=== PATIENT | male | born 1990 | race Caucasian/White ===

== ENCOUNTER 2017-09-19 15:19 | Emergency (ER) | payer OTHER ==
[~2017-09-19] VITALS: Ht 182.9 cm; Wt 109.8 kg
[~2017-09-19 15:19] MED LIST: CLONIDINE0.1 MG PO; PROAIR HFA8.5 GM INH; PROTONIX40 M3 PO; SUBOXONE 8 MG-21 FIL SL; ZITHROMAX Z-PA250 M1 PO; ZITHROMAX250 M2 PO
[2017-09-19 16:02] LABS: ABSOLUTE BASOPHIL COUNT 0 /CUMM (0.0-0.2); ABSOLUTE EOSINOPHIL COUNT 0.2 /CUMM (0.0-0.7); ABSOLUTE GRANULOCYTE CT 4.3 /CUMM (1.4-6.5); ABSOLUTE MONOCYTE COUNT 0.5 /CUMM (0.10-0.60); BASOPHIL % 0.4 % (0.0-2.0); EOSINOPHIL % 2.8 % (0-5); GRANULOCYTE % 61.3 % (42.2-75.2); HEMATOCRIT 42.7 % (42-52); MEAN CORPUSCULAR HGB 31.5 PG (27.0-31.0); MEAN CORPUSCULAR HGB CONC 34.6 G/DL (33.0-37.0); MEAN CORPUSCULAR VOLUME 90.9 FL (80.0-94.0); PLATELET COUNT 236 /CUMM (130-400); RBC DISTRIBUTION WIDTH 14.1 % (11.5-14.5)
--- NOTE | 2017-09-19 16:47 | ED GENERAL ADULT ---
History of Present Illness General Chief Complaint: Chest Pain Stated Complaint: PT IS BP IS HIGH BLOOD PRESSURE AND CHEST PAIN Source: patient Exam Limitations: no limitations Vital Signs & Intake/Output Vital Signs & Intake/Output Vital Signs Date Time Temp Pulse Resp B/P B/P Pulse O2 O2 Flow FiO2 Mean Ox Delivery Rate 09/19 1906 98.0 77 20 142/88 98 09/19 1905 98.0 77 20 142/88 09/19 1753 97.9 96 20 152/91 97 Room Air 09/19 1710 98 Room Air 09/19 1529 97.0 112 20 180/109 97 Room Air Allergies Coded Allergies: No Known Allergies (06/01/17) Reconcile Medications Albuterol Sulfate (Proair Hfa) 90 MCG HFA.AER.AD 2 PUF INH Q4-6 PRN PRN wheezing Azithromycin (Zithromax) 250 MG TABLET 1 DP PO AD uri 2 the first day followed by 1 for days 2-5 BUPRENORPHINE HCL/NALOXONE HCL (Suboxone 8 MG-2 MG Sl Film) 8 MG-2 MG FILM 2 FILM SL QDAY PRN OPIOID WITHDRAWAL SIXTEEN... [id number] BUPRENORPHINE HCL/NALOXONE HCL (Suboxone 8 MG-2 MG Sl Film) 1 ANDERS ANDERS 2 FILM SL QDAY PRN OPIOID WITHDRAWAL SX TEN TABS...[id number]...FOLLO W UP WITH OUTPT DETOX CLONIDINE HCL (Clonidine) 0.1 MG TABLET 1 TAB PO QPM . Gabapentin 300 MG CAPSULE 1 CAP PO TID PRN withdrawal Indomethacin 25 MG CAPSULE 1 CAP PO TID PRN pain with food Pantoprazole Sodium (Protonix) 40 MG TABLET. 1 TAB PO BID gastritis Triage Note: 26 YEAR OLD MALE TO ER WITH COMPLAINTS OF L SIDE CP, CONSTANT AND NON RADIATING FOR THE PAST 3 DAYS, PT STATES THAT HE HAS BEEN A DAILY DRINKER FOR THE PAST 8 MONTHS AND THAT 3 DAYS AGO HE DECIDED TO STOP DRINKING, STATES THAT HIS BP HAS BEEN ELEVATED , AND HE WAS VERY NERVOUS THAT HE WAS WITHDRAWING FROM ETOH AND STARTED TO DRINK AGAIN LAST PM, STATES THAT HIS LAST DRINK WAS VODKA AT 0100. PT NOTED TO BE VERY ANXIOUS AT THIS TIME. STATES THAT PAIN DOES NOT INCREASE WITH MOVEMENT OR DEEP INSPIRATION Triage Nurses Notes Reviewed? yes Onset: Gradual Duration: day(s): (3) Timing: no prior history Injury Environment: home Severity: moderate No Modifying Factors: none HPI: Patient is a 26-year-old male with recent history of alcohol abuse, drinking 10- 12 shots daily for the past 9 months presenting to the emergency department with chief complaint of elevated blood pressure at home and chest pain that began 3 days ago. He tried to take himself off alcohol 3 days ago woke up with chest pain, symptoms have been constant. His mom took his blood pressure at home because she is a nurse and noted it to be elevated. Symptoms still persisted today so he came in for evaluation. Denies any headaches or visual changes. No history of hypertension. Patient feels slightly anxious. [place] better this morning after taking a shot of alcohol. Denies any other drug use. Patient does smoke cigarettes. No abdominal pain. No history of withdrawal seizures. (Renuka Snyder) Past History Travel History Traveled to [place] past 21 day No Medical History Any Pertinent Medical History? see below for history Neurological: NONE (Pt denies) EENT: NONE (Pt denies) Cardiovascular: NONE Respiratory: NONE (Pt denies) Gastrointestinal: NONE (Pt denies) Hepatic: NONE Renal: NONE (Pt denies) Musculoskeletal: NONE (Pt denies) Psychiatric: opioid dependence, substance abuse, ADHD Endocrine: NONE Blood Disorders: NONE Cancer(s): NONE SAMPLE TESTER/Reproductive: NONE (pt denies) History of MRSA: No History of VRE: No History of CDIFF: No Surgical History Surgical History: tonsillectomy Psychosocial History Who do you live with Brother What is your primary language Lao Tobacco Use: Never used ETOH Use: alcoholic Illicit Drug Use: denies illicit drug use Family History Hx Contributory? No (Renuka Snyder) Review of Systems Review of Systems Constitutional: Reports: no symptoms. Comments Review of systems: See HPI, All other systems negative. Constitutional, no chills fever or weight loss HEENT: No visual changes no sore throat no congestion Cardiovascular: No palpitation , orthopnea or ankle swelling Skin, no jaundice no rashes Respiratory: No dyspnea cough sputum or hemoptysis GI: No nausea no vomiting : No dysuria No hematuria Muscle skeletal: no back pain, no neck pain, Neurologic: No numbness no confusion no headaches Psych: No stress anxiety or depression,. Heme/endocrine: No bruising no bleeding no polyuria or polydipsia Immunology: No splenectomy or history of AIDS (Renuka Snyder) Physical Exam Physical Exam General Appearance: well developed/nourished, no apparent distress, alert, awake , comfortable Comments: Well-developed well-nourished person in no acute distress HEENT: Pupils equally round and reactive to light and accommodation. Nose is atraumatic. External auditory canal and Tympanic membranes clear. Pharynx normal. No swelling or edema. Neck: Normal inspection Back: Nontender Cardiovascular: Regular rate and rhythms no murmurs rubs or gallops, normal JVP Respiratory: Chest nontender. No respiratory distress.breath sounds clear to auscultation bilaterally Abdomen: Soft, nontender nondistended, no appreciable organomegaly. Normal bowel sounds. No ascites, no rebound or guarding. Extremity: No edema, no calf tenderness to palpation, normal and equal pulses. Neuro: Alert oriented x3 Skin: No appreciable rash on exposed skin, skin is warm and dry. Psych: Mood and affect is normal, memory and judgment is normal. Core Measures ACS in differential dx? Yes CVA/TIA Diagnosis: No Sepsis Present: No Sepsis Focused Exam Completed? No (Renuka Snyder) Progress Differential Diagnoses I considered the following diagnoses in my evaluation of the patient: Pericarditis, alcohol withdrawal, costochondritis, pleurisy, pulmonary embolus, Plan of Care: Orders Procedure Date/time Status TROPONIN LEVEL 09/19 1930 Complete EKG 09/19 1930 Active Add-on Test (ER Only) 09/19 1824 Active Add-on Test (ER Only) 09/19 1742 Active CIWA 09/19 1741 Active Add-on Test (ER Only) 09/19 1739 Active PARTIAL THROMBOPLASTIN TIME 09/19 1547 Complete PROTHROMBIN TIME 09/19 1547 Complete LIPASE 09/19 1547 Complete ETHANOL 09/19 1547 Complete D-DIMER 09/19 1547 Complete URINE DRUG SCREEN FOR ER ONLY 09/19 1534 Complete URINALYSIS 09/19 1534 Complete TROPONIN LEVEL 09/19 1534 Complete COMPREHENSIVE METABOLIC PANEL 09/19 1534 Complete CBC WITHOUT DIFFERENTIAL 09/19 1534 Complete EKG 09/19 1521 Active Laboratory Tests 09/19/17 1920: Troponin I < 0.01 09/19/17 1556: Urine Opiates Screen < 100, Methadone Screen < 40, Barbiturate Screen < 60, Ur Phencyclidine Scrn < 6.00, Amphetamines Screen < 100, U Benzodiazepines Scrn < 85, Urine Cocaine Screen < 50, Urine Cannabis Screen < 5.00, Urine Color YEL, Urine Clarity CLEAR, Urine pH 6.0, Ur Specific P[place]an >= 1.030, Urine Protein NEG, Urine Ketones TRACE H, Urine Nitrite NEG, Urine Bilirubin NEG, Urine Urobilinogen 0.2, Ur Leukocyte Esterase NEG, Ur Microscopic EXAM NOT REQUIRED, Urine Hemoglobin NEG, Urine Glucose NEG 09/19/17 1547: Anion Gap 13, Estimated GFR > 60, BUN/Creatinine Ratio 21.3, Glucose 128 H, Calcium 9.6, Total Bilirubin 0.6, AST 52, ALT 74 H, Alkaline Phosphatase 109, Troponin I < 0.01, Total Protein 8.0, Albumin 4.5, Globulin 3.5, Albumin/ Globulin Ratio 1.3, Lipase 257, PT 10.3, INR 0.95, APTT 33, D-Dimer High Sensitivty < 200, CBC w Diff NO MAN DIFF REQ, RBC 4.70, MCV 90.9, MCH 31.5 H, MCHC 34.6, RDW 14.1, MPV 8.0, Gran % 61.3, Lymphocytes % 28.4, Monocytes % 7.1, Eosinophils % 2.8, Basophils % 0.4, Absolute Granulocytes 4.3, Absolute Lymphocytes 2.0, Absolute Monocytes 0.5, Absolute Eosinophils 0.2, Absolute Basophils 0, Serum Alcohol < 10.0 Diagnostic Imaging: Viewed by Me: Radiology Read. Discussed w/RAD: Radiology Read. Radiology Impression: PATIENT: MERCEDES ENCARNACION III PRESENT AGE: 26 PATIENT ACCOUNT NO: [id number] : 88 LOCATION: [facility] ORDERING PHYSICIAN: Renuka VILLAFANA SERVICE DATE: 09/19/17 EXAM TYPE: RAD - XRY-CHEST XRAY, TWO VIEWS EXAMINATION: XR CHEST CLINICAL INFORMATION : Chest pain COMPARISON: 05/14/2015 TECHNIQUE: 2 views of the chest were obtained. FINDINGS: No significant abnormality is noted involving the heart, lungs, mediastinum, bony thorax or soft tissues. IMPRESSION: Unremarkable examination. DICTATED BY: Cliff Mai MD DATE/TIME DICTATED:03/27/18 / 1837 SHOCK ABSORBER INSTALLER:ZEKE DATE/TIME TRANSCRIBED:09/19/17 / 183 CONFIDENTIAL, DO NOT COPY WITHOUT APPROPRIATE AUTHORIZATION. <Electronically signed in Other Vendor System> SIGNED BY: Cliff Mai MD 09/19/171840 Initial ED EKG: sinus tachycardia Prior EKG: unchanged Repeat EKG: unchanged Comments: Patient d-dimer negative. Second troponin negative. No EKG changes. Patient feeling slightly improved after IV Toradol. Follow with cardiology, Dr. Harper, recommending patient follow up outpatient. Patient will be started on NSAIDs. Patient also started on gabapentin for alcohol withdrawal. Given list of outpatient facilities that he can follow-up with this patient does not meet criteria for inpatient alcohol detox and patient does not want inpatient detox. low HEART score. (Renuka Snyder) Departure Departure Time of Disposition: 2005 Disposition: HOME OR SELF CARE Condition: Stable Clinical Impression Primary Impression: Alcohol withdrawal Qualifiers: Complication of substance-induced condition: uncomplicated Qualified Code: F10.230 - Alcohol dependence with withdrawal, uncomplicated Secondary Impressions: Chest pain Qualifiers: Chest pain type: unspecified Qualified Code: R07.9 - Chest pain, unspecified Referrals: Layne Kim APRN (PCP/Family) Leroy [facility],Juventino Hernandez Additional Instructions: Follow-up with your primary care physician in the next one to do days, also follow up with cardiology if symptoms persist. Take anti-inflammatories to help with chest pain. Take gabapentin as prescribed to help with withdrawal symptoms. Return for worsening symptoms or concerns. you were given a list of detox facilities. Departure Forms: Customer Survey General Discharge Information Prescriptions: Current Visit Scripts Indomethacin 1 CAP PO TID PRN pain #20 CAP with food Gabapentin 1 CAP PO TID PRN withdrawal #15 CAP (Renuka Snyder) PA/INFORMATION TECHNOLOGY ASSOCIATE Co-Sign Statement Statement: ED Attending supervision documentation- [x] I saw and evaluated the patient. I have also reviewed all the pertinent lab results and diagnostic results. I agree with the findings and the plan of care as documented in the PA's/INFORMATION TECHNOLOGY ASSOCIATE's documentation. [] I have reviewed the ED Record and agree with the PA's/INFORMATION TECHNOLOGY ASSOCIATE's documentation. [] Additions or exceptions (if any) to the PAs/INFORMATION TECHNOLOGY ASSOCIATE's note and plan are summarized below: [ I saw and personally evaluated the patient and I agree with the PAs evaluation. Tachycardia nonspecific ST-T wave abnormality no chest pain on my exam.] (Arie Meng DO) Critical Care Note Critical Care Note Critical Care Time: non-applicable (Trini VILLAFANA,Renuka)
--- NOTE | 2017-09-19 18:41 | RADIOLOGY REPORT ---
EXAMINATION: XR CHEST CLINICAL INFORMATION: Chest pain COMPARISON: 05/14/2015 TECHNIQUE: 2 views of the chest were obtained. FINDINGS: No significant abnormality is noted involving the heart, lungs, mediastinum, bony thorax or soft tissues. IMPRESSION: Unremarkable examination.
[2017-09-19 18:48] LABS: PT 10.3 SEC (9.4-12.5); PTT 33 SEC (25-37)
[2017-09-19 19:06] VITALS: BP 142/88
[2017-09-19] MEDS ORDERED: GABAPENTIN300 M2 PO (20:15)
[2017-09-19] MEDS ORDERED: INDOMETHACIN25 M1 PO (20:15)
== END 2017-09-19 20:20 ==
LOC: ERH 15:19
PROVIDERS: Emergency Medicine
DX: F10.239 Alcohol dependence with withdrawal, unspecified (principal); R07.9 Chest pain, unspecified
CPT/HCPCS: 71046; 80307; 81003; 93005; 93010; 96374; G0480; J1885